=== PATIENT | male | born 1945 | race Caucasian/White ===

== ENCOUNTER 2016-09-26 12:00 | Emergency (ER) | payer MEDICARE, OTHER ==
[~2016-09-26] VITALS: Ht 188 cm; Wt 99.8 kg
[~2016-09-26 12:00] MED LIST: AMLO10TA PO; AMLO5TAB2 PO; AUGM875T27 PO; LISI40TAB PO; MYLI40DR PO; PREV30CA11 PO
[2016-09-26] MEDS ORDERED: ASPI81TA85 PO (12:12)
[2016-09-26 13:46] VITALS: BP 161/68
== END 2016-09-26 13:48 | disposition home or self-care (01) ==
LOC: M ED 13:02
DX: Z43.6 Encounter for attention to other artificial openings of urinary tract (principal); Z87.891 Personal history of nicotine dependence

== ENCOUNTER 2017-08-08 13:54 | Emergency (ER) | payer OTHER | END 2017-08-08 16:50 | disposition home or self-care (01) | LOC: M ED 13:54 | DX: S06.0X9A Concussion with loss of consciousness of unspecified duration, initial encounter (principal); S16.1XXA Strain of muscle, fascia and tendon at neck level, initial encounter; W19.XXXA Unspecified fall, initial encounter; Y92.099 Unspecified place in other non-institutional residence as the place of occurrence of the external cause; Y93.9 Activity, unspecified; I10 Essential (primary) hypertension; M47.812 Spondylosis without myelopathy or radiculopathy, cervical region; M47.813 Spondylosis without myelopathy or radiculopathy, cervicothoracic region; M25.78 Osteophyte, vertebrae; Z79.82 Long term (current) use of aspirin; Z79.899 Other long term (current) drug therapy | CPT/HCPCS: 72110 ==